=== PATIENT | female | born 1995 | race Caucasian/White ===

== ENCOUNTER 2016-04-29 21:52 | Emergency (ER) | payer BC ==
[2016-04-29] MEDS ORDERED: Ketorolac INJ* 30 MG/ML 1 ML VIAL IV PUSH ONE (23:27)
[2016-04-29] MEDS ORDERED: NS 0.9% 1000 ML* 1,000 ML IV ONE (23:27)
[2016-04-29 23:36] LABS: Hematocrit 41 % (35-47); Mean Corpuscular HGB Conc 34 g/dl (31-36); Mean Corpuscular Hemoglobin 30 pg (27-31); Mean Corpuscular Volume 87 fL (80-97); Mean Platelet Volume 9 um3 (7.4-10.4); Red Blood Count 4.69 10^6/ul (4.0-5.4); Red Cell Distribution Width 13 % (10.5-15); White Blood Count 11.9 10^3/ul (3.5-10.8)
--- NOTE | 2016-04-29 23:45 | ED ---
Abdominal Pain/Female - HPI Summary HPI Summary: 21 F presents with left lower pelvic pain since today. She has a PMH of ovarian cyst and says that it feels the same. She says she was suppose to follow up with obgyn for this problem but never did. She states that she did feel nauseous and vomited once. She denies any diarrhea, fever, hematuria, dysuria, constipation, vaginal discharge or bleeding. Her LMP was 2 weeks ago. She denies any history of STDs or change she could have an STD. - History of Current Complaint Chief Complaint: EDAbdPain Stated Complaint: ABD PAIN/HX OF OVARIAN CYSTS Time Seen by Provider: 04/29/16 23:01 Pain Intensity: 6 Allergies/Adverse Reactions: Allergies Allergy/AdvReac Type Severity Reaction Status Date / Time No Known Allergies Allergy Verified 04/29/16 22:02 PMH/Surg Hx/FS Hx/Imm Hx Cardiovascular History: Denies: Hx Hypertension Respiratory History: Denies: Hx Asthma GI History: Reports: Other GI Disorders - ovarian cyst Infectious Disease History: No Infectious Disease History: Denies: Traveled Outside the [place] in Last 30 Days - Family History Known Family History: Negative: Cardiac Disease - Social History Occupation: Student Alcohol Use: None Substance Use Type: Reports: None Smoking Status (MU): Never Smoked Tobacco Review of Systems Negative: Fever Negative: Chest Pain Negative: Shortness Of Breath Positive: Abdominal Pain - left side pelvic pain, Vomiting - resolved, Nausea - resolved Negative: dysuria All Other Systems Reviewed And Are Negative: Yes Physical Exam Triage Information Reviewed: Yes Vital Signs On Initial Exam: Initial Vitals Temp Pulse Resp BP Pulse Ox 98.3 F 88 16 146/86 98 04/29/16 21:55 04/29/16 21:55 04/29/16 21:55 04/29/16 21:55 04/29/16 21:55 Vital Signs Reviewed: Yes Appearance: Positive: Well-Appearing Skin: Positive: Warm, Dry Head/Face: Positive: Normal Head/Face Inspection Eyes: Positive: Normal, Conjunctiva Clear ENT: Positive: Normal ENT inspection, Pharynx normal, TMs normal Respiratory/Lung Sounds: Positive: Clear to Auscultation, Breath Sounds Present Cardiovascular: Positive: Normal, RRR Abdomen Description: Positive: Nontender, Soft, Other: - pain is located at left inguinal area but pain is not reproducible and no hernia is felt Bowel Sounds: Positive: Present Diagnostics - Vital Signs Vital Signs Temp Pulse Resp BP Pulse Ox 04/29/16 22:55 98.5 F 70 16 143/90 97 04/29/16 21:55 98.3 F 88 16 146/86 98 - Laboratory Lab Results: Lab Results 04/29/16 Range/Units 23:25 WBC 11.9 H (3.5-10.8) 10^3/ul RBC 4.69 (4.0-5.4) 10^6/ul Hgb 14.0 (12.0-16.0) g/dl Hct 41 (35-47) % MCV 87 (80-97) fL MCH 30 (27-31) pg MCHC 34 (31-36) g/dl RDW 13 (10.5-15) % Plt Count 308 (150-450) 10^3/ul MPV 9 (7.4-10.4) um3 Neut % (Auto) 66.8 (38-83) % Lymph % (Auto) 25.0 (25-47) % Mcnairy % (Auto) 6.8 (1-9) % Eos % (Auto) 0.6 (0-6) % Baso % (Auto) 0.8 (0-2) % Absolute Neuts (auto) 7.9 H (1.5-7.7) 10^3/ul Absolute Lymphs (auto) 3.0 (1.0-4.8) 10^3/ul Absolute Monos (auto) 0.8 (0-0.8) 10^3/ul Absolute Eos (auto) 0.1 (0-0.6) 10^3/ul Absolute Basos (auto) 0.1 (0-0.2) 10^3/ul Absolute Nucleated RBC 0 10^3/ul Nucleated RBC % 0 Result Diagrams: 04/29/16 23:25 04/29/16 23:25 Lab Statement: Any lab studies that have been ordered have been reviewed, and results considered in the medical decision making process. - Ultrasound No standard instances Ultrasound Interpretation: Positive (See Comments) - no cysts or free fluid in cul-de sac. bilateral doppler flow but no venous flow submitted diagnosis so unable to differntial r/o ovarian torison Ultrasound Interpretation Completed By: Radiologist Abdominal Pain Fem Course/Dx - Course Course Of Treatment: 21 F presents with left sided pelvic pain today. states similiar to pain with ovarian cyst in past. admits to n/v that has resolved, abdominal exam is benign, states pain located at left inguinal region but pain not reproducible and no hernia felt. u/s showed no cyst, explained unable to rule out ovarian torison definitively without any u/s to see blood flow but patient refused. explained risks with ovarian torison that is surgical emergency and could loss ovary but patient still refuses. offered to do pelvic exam to check for STDs and PID and patient refuses. do not suspect PID as WBC not that high. CRP slightly elevated. patient would like to be d/c home. instructed that if pain returns or starts to vomit to return immediately to have u/s done with venous flow, instructed patient if feels mass like hernia to return, patient understands and agrees with plan - Diagnoses Differential Diagnosis: Positive: Ovarian Cyst, Pelvic Inflammatory Disease, , Urinary Tract Infection, Other - ovarian torison Provider Diagnoses: Abdominal pain Discharge - Discharge Plan Condition: Stable Disposition: HOME Patient Education Materials: Acute Abdominal Pain (ED) Forms: *School Release Referrals: [facility] [Primary Care Provider] - Additional Instructions: Return to ED immediately if develop vomiting or if pain becomes severe or any new or worsening symptoms Follow up with [facility] within 3 days Take Tylenol for pain every 6 hours
[2016-04-29 23:48] LABS: ALT 10 U/L (7-52); AST 17 U/L (13-39); Albumin 4.5 g/dL (3.2-5.2); Alkaline Phosphatase 65 U/L (34-104); Anion Gap 9 mmol/L (2-11); BUN/Creatinine Ratio 14.1 (8-20); Blood Urea Nitrogen 9 mg/dL (6-24); CO2 Carbon Dioxide 26 mmol/L (22-32); Calcium 9.5 mg/dL (8.6-10.3); Chloride 103 mmol/L (101-111); EGFR African American 152.1 (>60); EGFR Non-African American 118.3 (>60); Globulin 2.8 g/dL (2-4); Glucose 89 mg/dL (70-100); Potassium 3.6 mmol/L (3.5-5.0); Sodium 138 mmol/L (133-145); Total Protein 7.3 g/dL (6.4-8.9)
[2016-04-30 00:04] LABS: Urine Bacteria Absent (Absent); Urine Bilirubin Negative (Negative); Urine Glucose Negative (Negative); Urine Nitrite Negative (Negative)
[2016-04-30] MEDS ORDERED: Morphine INJ* 4 MG/ML 1 ML CARPUJECT IV ONE (00:36)
[2016-04-30 01:48] VITALS: BP 109/57
--- NOTE | 2016-04-30 07:41 | RAD ---
Indication: Pelvic pain potential ruptured ovarian cyst. COMPARISON: There are no prior studies available for comparison. TECHNIQUE: Multiple real-time transvaginal images of the pelvis were obtained. FINDINGS: The uterus is normal in size, shape and echogenicity. The uterus measured 7.7 x 2.7 x 5.3 cm. The endometrial echo measured 0.6 cm in thickness. The right ovary measured 2.5 x 1.7 x 1.6 cm. The left ovary measured 2.2 x 1.9 x 1.4 cm. There is vascular flow within both ovaries. No free intraperitoneal fluid is seen. IMPRESSION: NEGATIVE EXAM.
== END 2016-04-30 01:46 | disposition home or self-care (01) ==
LOC: ED 21:52
DX: R10.32 Left lower quadrant pain (principal)
CPT/HCPCS: 36415; 76830; 80053; 81003; 81015; 84702; 85025; 86141; 87086; 96374; 99283; J1885; J2270

== ENCOUNTER 2016-07-13 17:00 | Emergency (ER) | payer BC ==
[2016-07-13] MEDS ORDERED: predniSONE TAB* 20 MG PO ONE (17:55)
[2016-07-13] MEDS ORDERED: Famotidine TAB* 20 MG PO ONE (17:56)
[2016-07-13 19:20] VITALS: BP 104/60
--- NOTE | 2016-07-13 21:01 | ED ---
I, Brandon,Peggy, scribed for Orlando Larsen MD on 07/13/16 at 1758 . 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 Pt took a shower around 1200 PM when she noticed rash across her chest. She applied hydrocortisone to the affected area and took zyrtec, but proceeded to develop chest tightness and SOB. Pt visited [facility], where she received a shot of benadryl and Epi around 1500 PM. Chest tightness and SOB are better now. Pt reports positive history of similar allergic reaction, after which pt was tested for possible allergen but didn't have positive results. Pt denies any unusual food consumption, perfume use or any insect bite. - History of Current Complaint Chief Complaint: EDAllergicReaction Time Seen by Provider: 07/13/16 17:36 Hx Obtained From: Patient, Medical Records Onset/Duration: Sudden Onset, Still Present Timing: Constant Pain Intensity: 5 Pain Scale Used: 0-10 Numeric Location: Diffuse Aggravating Factor(s): Nothing Alleviating Factor(s): Nothing Associated Signs And Symptoms: Positive: Abdominal Pain, Difficulty Breathing, Rash. Negative: Throat Tightening - Allergies/Home Medications Allergies/Adverse Reactions: Allergies Allergy/AdvReac Type Severity Reaction Status Date / Time No Known Allergies Allergy Verified 04/29/16 22:02 PMH/Surg Hx/FS Hx/Imm Hx Cardiovascular History: Denies: Hx Hypertension Respiratory History: Denies: Hx Asthma GI History: Reports: Other GI Disorders - ovarian cyst Infectious Disease History: No Infectious Disease History: Denies: Traveled Outside the [place] in Last 30 Days - Family History Known Family History: Negative: Cardiac Disease - Social History Occupation: Student - [employer] Alcohol Use: Occasionally Hx Substance Use: No Substance Use Type: Reports: None Hx Tobacco Use: No Smoking Status (MU): Never Smoked Tobacco Review of Systems Negative: Fever Negative: Other - throat tightening Positive: Chest Pain - chest tightness, resolved Positive: Shortness Of Breath - currently resolved Positive: Rash - across chest All Other Systems Reviewed And Are Negative: Yes Physical Exam - Summary Physical Exam Summary: The patient is well-nourished in no acute distress and in no acute pain. Pleasant. No acute distress. The skin is warm and dry. Rash diffuse across chest, back, and neck. HEENT: The head is normocephalic and atraumatic. The pupils are equal and reactive. The conjunctivae are clear and without drainage. Nares are patent and without drainage. Mouth reveals moist mucous membranes and the throat is without erythema and exudate. The external ears are intact. The ear canals are patent and without drainage. The tympanic membranes are intact. Neck is supple with full range of motion and non-tender. There are no carotid bruits. There is no neck vein distension. Respiratory: Chest is non-tender. Lungs are clear to auscultation and breath sounds are symmetrical and equal. No wheezing. No stridor. Cardiovascular: Heart rate is tachycardic. There is no murmur or rub auscultated. There is no peripheral edema and pulses are symmetrical and equal. Abdomen: The abdomen is soft and non-tender. There are normal bowel sounds heard in all four quadrants and there is no organomegaly palpated. Musculoskeletal: There is no back pain noted. Extremities are non-tender with full range of motion. There is good capillary refill. There is no peripheral edema or calf tenderness elicited. Neurological: Patient is alert and oriented to person, place and time. The patient has symmetrical motor strength in all four extremities. Cranial nerves are grossly intact. Deep tendon reflexes are symmetrical and equal in all four extremities. Psychiatric: The patient has an appropriate affect and does not exhibit any anxiety or depression. Triage Information Reviewed: Yes Vital Signs On Initial Exam: Initial Vitals Temp Pulse Resp BP Pulse Ox 98.8 F 112 20 123/65 100 07/13/16 17:25 07/13/16 17:25 07/13/16 17:25 07/13/16 17:25 07/13/16 17:25 Vital Signs Reviewed: Yes Diagnostics - Vital Signs Vital Signs Temp Pulse Resp BP Pulse Ox 07/13/16 17:25 98.8 F 112 20 123/65 100 - Laboratory Lab Statement: Any lab studies that have been ordered have been reviewed, and results considered in the medical decision making process. Re-Evaluation - Re-Evaluation First Eval Re-Evaluation Time: 19:03 Change: Improved Allergic Reaction Course/Dx - Course Assessment/Plan: Pt presents to ED for allergic reaction to unknown allergen. Positive rash across chest, chest tightness and SOB since 1200 PM. Pt reports taking zyrtec and applying hydrocortisone at 1200 PM and receiving epi and benadryl at [facility] around 1515 PM. Pt decided to visit ED later in the day. Given that pt has poor tolerance to IV and tends to have vasovagal syndrome and that pt is about 3 hours out since Epi and benadryl, pt will be given Pepcid for symptomatic treatment. - Diagnoses Differential Diagnosis/HQI/PQRI: Positive: Anaphylaxis, Local Allergic Reaction Provider Diagnoses: anaphylactic reaction with unknown etiol Discharge - Discharge Plan Condition: Stable Disposition: HOME Prescriptions: Famotidine TAB 40 MG(NF) [Pepcid TAB 40 MG(NF)] 40 mg PO DAILY #30 tab predniSONE TAB* [Deltasone TAB*] 40 mg PO DAILY #10 tab Patient Education Materials: General Allergic Reaction (ED), Famotidine (By mouth), Diphenhydramine (By mouth), Prednisone (By mouth), Cetirizine (By mouth) , Anaphylaxis (ED) Referrals: [facility] [Primary Care Provider] - 2 Days The documentation as recorded by the Brandon tapia Soohyun accurately reflects the service I personally performed and the decisions made by , Orlando Larsen MD.
== END 2016-07-13 19:16 | disposition home or self-care (01) ==
LOC: ED 17:00
DX: T78.2XXA Anaphylactic shock, unspecified, initial encounter (principal); X58.XXXA Exposure to other specified factors, initial encounter; R21 Rash and other nonspecific skin eruption; R07.9 Chest pain, unspecified; R06.02 Shortness of breath
CPT/HCPCS: 99282; A9270-GY; J7512